=== PATIENT | female | born 1965 | race Two or more races ===

== ENCOUNTER 2018-06-10 15:33 | Outpatient (CLI) | payer OTHER | END 2018-06-10 15:36 | disposition home or self-care (01) | LOC: SONOGRAMA 15:33 | DX: E04.1 Nontoxic single thyroid nodule (principal) ==

== ENCOUNTER 2018-06-16 13:18 | Outpatient (CLI) | payer OTHER | END 2018-06-16 13:29 | disposition home or self-care (01) | LOC: NUCLEAR 13:18 | DX: M81.0 Age-related osteoporosis without current pathological fracture (principal) ==

== ENCOUNTER 2018-09-10 09:17 | Outpatient (CLI) | payer OTHER | END 2018-09-10 17:00 | disposition home or self-care (01) | LOC: SONOGRAMA 09:17 | DX: K81.1 Chronic cholecystitis (principal); R10.13 Epigastric pain; K29.00 Acute gastritis without bleeding; K44.9 Diaphragmatic hernia without obstruction or gangrene; K21.0 Gastro-esophageal reflux disease with esophagitis ==

== ENCOUNTER → 2020-12-01 | Outpatient (CLI) | payer OTHER | END | disposition home or self-care (01) | LOC: MRI 11:43 | PROVIDERS: ATTEND Physical Medicine & Rehabilitation | DX: M54.5 Low back pain (principal); M25.512 Pain in left shoulder | CPT/HCPCS: 72148 ==

== ENCOUNTER 2024-04-15 05:30 | Day surgery (SDC) | payer OTHER ==
[2024-04-07 11:57] VITALS: BP 115/79
[2024-04-07 11:58] LABS: URINE APPEARANCE Clear; URINE BILIRRUBIN Negative (NEGATIVE); URINE BLOOD Negative; URINE COLOR Yellow; URINE GLUCOSE Negative (NEGATIVE); URINE KETONE Negative (NEGATIVE); URINE LEUKOCYTE Negative; URINE NITRATE Negative; URINE PROTEIN Negative (NEGATIVE); URINE UROBILINOGEN 0.2 E.U./dl
[2024-04-07 12:03] LABS: HEMATOCRIT 42.6 % (36.0-45.00); HEMOGLOBIN 14.5 g/dL (12.0-15.00); MEAN CELL VOLUME 88.8 fL (80.00-100.00); MEAN CORPUSCULAR HEMOGLOBIN 30.3 pg (27.00-32.0); MEAN CORPUSCULAR HGB CONC 34.1 g/dl (32.0-36.0); PLATELET COUNT 237 K/uL (150-450)
[2024-04-07 12:05] LABS: URINE BACTERIA 1810.5 uL (0.0-1933); URINE EPITHELIAL CELLS 55.7 uL (0.0-38.8); URINE RBC 6.1 uL (0.0-20.8)
[2024-04-07 12:24] LABS: INR 0.98; PARTIAL THROMBOPLASTIN TIME 27.3 SECONDS (22.0-34.0); PROTHROMBIN TIME 10.7 SECONDS (9.0-11.5)
[2024-04-07 12:31] LABS: ALBUMIN 4.1 gm/dL (3.4-5.0); BILIRUBIN TOTAL 0.55 mg/dL (0.3-1.2); CALCIUM 9.3 mg/dL (8.5-10.1); CREATININE SERUM 0.84 mg/dL (0.55-1.02); GFR 69.4; GLOBULINA 3.4 G/DL (2.4-3.5); POTASSIUM 4.4 mEq/L (3.5-5.1); TOTAL PROTEIN 7.5 gm/dL (6.4-8.2)
[~2024-04-15] VITALS: Ht 152.4 cm; Wt 62.1 kg
[~2024-04-15 05:30] MED LIST: DHEA25 MG PO; LAMICTAL200 M1 PO; MELATONIN5 MG SL; OMEGA-31000 MG PO; ROSUVASTATIN CA20 MG PO; SYNTHROID112 MCG PO
[2024-04-15] MEDS ORDERED: METRONIDAZOLE/SODIUM CHLORIDE 500 MG/100 ML PIGGYBACK IV ONE (08:15)
[2024-04-15] MEDS ORDERED: BUPIVACAINE HCL 30 ML VIAL IJ ONE (08:15)
[2024-04-15] MEDS ORDERED: BUPIVACAINE LIPOSOME/PF 266 MG/20 ML VIAL IJ ONE (08:15)
[2024-04-15] MEDS ORDERED: POVIDONE-IODINE 118 ML BOTT TOP ONE (08:15)
[2024-04-15] MEDS ORDERED: DIBUCAINE 30 GM TUBE RECTAL ONE (08:15)
[2024-04-15] MEDS ORDERED: HEMOSTATIC MATRIX 1 KIT KIT TOP ONE (08:15)
[2024-04-15] MEDS ORDERED: CEFTRIAXONE SODIUM 2,000 MG VIAL IV ONE (08:15)
[2024-04-15] MEDS ORDERED: TAMSULOSIN HCL 0.4 MG CAP PO ONE (08:45)
[2024-04-15] MEDS ORDERED: OXYC1TAB9 PO (09:07)
[2024-04-15] MEDS ORDERED: MORPHINE SULFATE 4 MG/ML VIAL IV ONE (11:40)
== END 2024-04-15 12:30 | disposition home or self-care (01) ==
LOC: CIR.AMB 05:30
PROVIDERS: ATTEND Surgery
DX: K60.1 Chronic anal fissure (principal); K64.8 Other hemorrhoids; K62.5 Hemorrhage of anus and rectum; K62.89 Other specified diseases of anus and rectum; K64.4 Residual hemorrhoidal skin tags; F41.9 Anxiety disorder, unspecified

== ENCOUNTER 2024-04-25 12:07 | Emergency (ER) | payer OTHER ==
[~2024-04-25] VITALS: Ht 160 cm; Wt 63.5 kg
[~2024-04-25 12:07] MED LIST changes: +OXYC1TAB9 PO
[2024-04-25] MEDS ORDERED: HYDROCORTISONE ACETATE 25 MG/SUPP.RECT SUPP.RECT RECTAL STA (13:38)
[2024-04-25] MEDS ORDERED: KETOROLAC TROMETHAMINE 60 MG VIAL IM STA (13:39)
[2024-04-25 14:48] LABS: HEMOGLOBIN 13.4 g/dL (12.0-15.00); MEAN CELL VOLUME 89.4 fL (80.00-100.00); MEAN CORPUSCULAR HEMOGLOBIN 30.7 pg (27.00-32.0); MEAN CORPUSCULAR HGB CONC 34.3 g/dl (32.0-36.0); PLATELET COUNT 323 K/uL (150-450); RED BLOOD COUNT 4.36 M/uL (4.00-6.00); RED CELL DISTRIBUTION WIDTH 12.8 % (11.5-14.5)
[2024-04-25 15:24] LABS: CREATININE SERUM 0.88 mg/dL (0.55-1.02); GFR 65.77; POTASSIUM 4.1 mEq/L (3.5-5.1)
== END 2024-04-25 15:58 | disposition home or self-care (01) ==
LOC: ER 12:09
PROVIDERS: General Practice
DX: G89.18 Other acute postprocedural pain (principal); K64.8 Other hemorrhoids; E03.8 Other specified hypothyroidism; K62.89 Other specified diseases of anus and rectum

== ENCOUNTER 2024-05-05 16:49 | Inpatient (IN) | payer OTHER ==
[~2024-05-05] VITALS: Ht 152.4 cm; Wt 795.1 kg
[2024-05-05] MEDS ORDERED: RINGERS SOLUTION,LACTATED 1,000 ML IV STA (18:37)
[2024-05-05] MEDS ORDERED: KETOROLAC TROMETHAMINE 30 MG VIAL IV STA (18:37)
[2024-05-05] MEDS ORDERED: MEPERIDINE HCL/PF 50 MG/ML VIAL IM STA (18:38)
[2024-05-05] MEDS ORDERED: PROMETHAZINE HCL 50 MG/ML AMPUL IM STA (18:38)
[2024-05-05] MEDS ORDERED: ACETAMINOPHEN 500 MG GEL..CAP PO STA (18:39)
[2024-05-05] MEDS ORDERED: PIPERACILLIN/TAZOBACTAM SODIUM 3.375 GM VIAL IV STA (18:53)
[2024-05-05 19:10] LABS: HEMATOCRIT 38.1 % (36.0-45.00); MEAN CELL VOLUME 89.4 fL (80.00-100.00); MEAN CORPUSCULAR HEMOGLOBIN 30.4 pg (27.00-32.0); MEAN CORPUSCULAR HGB CONC 34.1 g/dl (32.0-36.0); PLATELET COUNT 325 K/uL (150-450); RED BLOOD COUNT 4.27 M/uL (4.00-6.00); RED CELL DISTRIBUTION WIDTH 12.9 % (11.5-14.5)
[2024-05-05 19:24] LABS: INR 0.98; PARTIAL THROMBOPLASTIN TIME 23.3 SECONDS (22.0-34.0); PROTHROMBIN TIME 10.7 SECONDS (9.0-11.5)
[2024-05-05 19:27] LABS: CALCIUM 9.6 mg/dL (8.5-10.1); CREATININE SERUM 0.85 mg/dL (0.55-1.02); GFR 68.45; POTASSIUM 4.07 mEq/L (3.5-5.1)
[2024-05-05] MEDS ORDERED: MELATONIN 5 MG TABLET PO SCH (20:42)
[2024-05-05] MEDS ORDERED: 0.9 % SODIUM CHLORIDE 1,000 ML IV SCH (20:45)
[2024-05-05] MEDS ORDERED: ACETAMINOPHEN 500 MG GEL..CAP PO PRN (20:45)
[2024-05-05 21:58] LABS: PH,URINE 6.5 (5.0-8.0); URINE APPEARANCE Clear; URINE BILIRRUBIN Negative (NEGATIVE); URINE BLOOD Negative; URINE COLOR Yellow; URINE GLUCOSE Negative (NEGATIVE); URINE KETONE Negative (NEGATIVE); URINE LEUKOCYTE Negative; URINE NITRATE Negative; URINE PROTEIN Negative (NEGATIVE); URINE UROBILINOGEN 0.2 E.U./dl
[2024-05-05 22:02] LABS: URINE BACTERIA 137.2 uL (0.0-1933); URINE EPITHELIAL CELLS 3.6 uL (0.0-38.8); URINE WBC 2.3 uL (0.0-23.2)
[2024-05-05 22:03] LABS: URINE RBC 0.9 uL (0.0-20.8)
[2024-05-06] MEDS ORDERED: PIPERACILLIN/TAZOBACTAM SODIUM 3.375 GM in DEXTROSE 5 % IN WATER 100 ML IV SCH
[2024-05-06 00:15] VITALS: BP 100/60; O2SAT 97
[2024-05-06] MEDS ORDERED: MORPHINE SULFATE 4 MG/ML CARTRIDGE IV SCH (02:00)
[2024-05-06 02:33] VITALS: BP 95/64; O2SAT 99
[2024-05-06] MEDS ORDERED: LEVOTHYROXINE SODIUM 112 MCG TABLET PO SCH (06:00)
[2024-05-06] MEDS ORDERED: FAMOTIDINE/PF 20 MG in 0.9 % SODIUM CHLORIDE 8 ML IV PUSH SCH (09:00)
[2024-05-06 09:13] VITALS: BP 85/87; O2SAT 96
[2024-05-06] MEDS ORDERED: OxyCODONE HCL 5 MG TABLET (ROXICODONE) PO PRN (14:15)
[2024-05-06] MEDS ORDERED: DIBUCAINE 30 GM TUBE RECTAL ONE (14:15)
[2024-05-06 16:10] VITALS: BP 99/63; O2SAT 95
[2024-05-06] MEDS ORDERED: BENZOCAINE/MENTHOL 90 ML BOTTLE TOP SCH (17:00)
[2024-05-06] MEDS ORDERED: POLYETHYLENE GLYCOL 3350 17 GM BLIST.PACK PO SCH (17:00)
[2024-05-06] MEDS ORDERED: KETOROLAC TROMETHAMINE 30 MG VIAL IV SCH (18:00)
[2024-05-07 00:16] VITALS: BP 90/55; O2SAT 100
[2024-05-07 08:31] VITALS: BP 113/64; O2SAT 98
[2024-05-07] MEDS ORDERED: OXYCODONE HCL5 MG PO (09:50)
[2024-05-07] MEDS ORDERED: AMOX1TAB5 PO (09:51)
[2024-05-07] MEDS ORDERED: INTESTINEX680 M1 PO (09:51)
== END 2024-05-07 10:42 | disposition home or self-care (01) | DRG 395 ==
LOC: ER 16:51 → SURG 21:17 → SEC-K 21:17 → SURG 21:58
PROVIDERS: General Practice; ADMIT Surgery; ATTEND Surgery
DX: K62.89 Other specified diseases of anus and rectum (principal); E03.9 Hypothyroidism, unspecified; E78.5 Hyperlipidemia, unspecified